=== PATIENT | male | born 1985 | race Caucasian/White ===

== ENCOUNTER 2024-10-09 19:01 | Emergency (ER) | payer OTHER, SELFPAY ==
[2024-10-09 19:01] VITALS: BMI 24.8
[2024-10-09 19:05] VITALS: BP 157/89
[2024-10-09 19:19] LABS: % Basophils 0.7 % (0-2); % Eosinophils 1.4 % (0-6); % Immature Granulocytes 0.1 % (0-0.5); % Lymphocytes 31.6 % (20.5-51.1); % Monocytes 8.2 % (1.7-9.3); Absolute Basophils 0.1 10^3/uL (0-0.2); Absolute Eosinophils 0.1 10^3/uL (0-0.7); Absolute Lymphocytes 2.2 10^3/uL (1.2-3.4); Absolute Monocytes 0.6 10^3/uL (0.1-0.6); Hematocrit 43.4 % (39.0-52.0); Hemoglobin 14.7 g/dL (13.0-18.0); Mean Corp Hgb Conc. 33.9 g/dL (33.0-37.0); Mean Corpuscular Hgb 27.9 pg (27.0-31.0); Mean Corpuscular Volume 82.5 fL (80.0-94.0); Mean Platelet Volume 10.1 fL (7.4-10.4); Nucleated Red Blood Cells % 0 % (-); Platelet Count 264 10^3/uL (130-400); Red Blood Cell Count 5.26 10^6/uL (4.70-6.10)
[2024-10-09 19:21] VITALS: BP 140/76
[2024-10-09 19:27] VITALS: BP 140/76
[2024-10-09 19:41] LABS: ALT (SGPT) 29 U/L (0-50); AST (SGOT) 25 U/L (17-59); Albumin 5.2 g/dl (3.5-5.0); Alkaline Phosphatase 85 U/L (38-126); Blood Urea Nitrogen 10 mg/dl (9-20); Calcium 10.2 mg/dl (8.4-10.2); Carbon Dioxide 27 mmol/L (22-30); Chloride 105 mmol/L (98-107); Estimated Creatinine Clearance 94 ml/min; Glucose 99 mg/dl (70-99); Potassium 3.7 mmol/L (3.5-5.1); Sodium 140 mmol/L (135-145); Total Bilirubin 0.8 mg/dl (0.2-1.3); Total Protein 7.4 g/dl (6.3-8.2); eGFR > 60.00
[2024-10-09 19:47] LABS: Troponin I < 0.012 ng/ml
[2024-10-09 20:00] VITALS: BP 133/81
--- NOTE | 2024-10-09 20:17 | ED.GENMED ---
History of Present Illness
General
Chief Complaint: Chest Pain
Source: patient
Exam Limitations: none
Time Seen by Provider: 10/09/24 20:09
Nursing documentation reviewed up to this point in time: agreed with
History of Present Illness
History of Present Illness:
39-year-old male with reported history of mild asthma, occasional GERD who presents to the ER for evaluation of chest pain. Patient reports symptoms have been ongoing for about 2 weeks. He reports a constant burning pain in his chest. He says
that the pain radiates up to his throat. No clear triggering or relieving factors noted�he reports that he went to urgent care and was advised to take a PPI and has been taking omeprazole twice daily for the past 2 weeks without improvement. While
he has had GERD in the past he says symptoms are never this severe or persistent. He says that symptoms seem to be generally worsening over the course of the past 2 weeks which prompted him to finally come to the ER for assessment. Aside from
chest pain he also reports mild occasional cough and some hoarseness of his voice. He denies any fever or chills. He denies feeling short of breath. He has not had any abdominal pain, no nausea/vomiting. Occasional loose stools. Denies any
swelling or pain in the legs. He denies any family history of early cardiac , no history of DVT/PE. He denies any alcohol use�says last alcohol intake was 6 months ago. He denies smoking or drug use.
Review of Systems
Review of Systems
All Other Systems: ROS reviewed and negative except as documented in HPI and ROS
Constitutional: Denies fever or chills
EENT: Reports other (Hoarseness of his voice)
Respiratory: Reports cough; Denies trouble breathing
Cardiac: Reports chest pain; Denies palpitations
ABD/GI: Reports diarrhea (Occasional); Denies abdominal pain, nausea or vomiting
: Denies flank pain
Musculoskeletal: Denies edema, neck pain or back pain
Neurological: Denies dizzy or headache
Phy Exam
Physical Exam
Physical Exam:
General: Awake, alert, oriented x3; no acute distress
Head: Normocephalic, atraumatic
Eyes: Conjunctiva normal, sclera anicteric
Throat: Airway intact, handling secretions
Neck: Trachea midline, supple without meningismus
Lungs: Clear to auscultation bilaterally, no wheezing, rales, rhonchi
Heart: Regular rate and rhythm, no murmurs, gallops, or rubs
Abd: Soft, non distended, nontender to deep palpation
Neuro: No gross deficits
Skin: no rash in area of concern
Extremities: No edema in extremities, no calf tenderness, equal pulses in all extremities
Scores
Heart Failure Risk
Heart Failure Risk Score: Not Applicable
Heart Score for Chest Pain Patients
STEMI patient?: No
History: Slightly or Non-Suspicious
ECG: Normal
Age: </= 45 years
Risk Factors: No Risk Factors
Troponin: </= Normal Limit
Heart Score for Chest Pain Patients: 0
Heart Score Risk: 2.5% MACE over next 6 weeks
Withdrawal Assessment of Alcohol
Withdrawal Assessment Completed?: Not applicable
Course
Orders/Labs/Results
Orders:
Orders
10/09/24 19:05
Electrocardiogram (*1) Urgent
Reason for Study: Chest Pain
Cardiac Monitoring- Treatment ONCE
EKG- Treatment ONCE
IV Insert/Care/Rem.- Treatment PRN
O2 Therapy [RESP] Urgent
Titrate/Wean O2 to maintain O2 sat greater than (%): 90
Special Instructions: Maintain sats >/=90%
Pulse Ox/spot Check [RESP] Urgent
Quantity: 1
Special Instructions: ON ROOM AIR
10/09/24 19:13
Complete Blood Count/With Diff Urgent
Comprehensive Metabolic Panel Urgent
Lipase Urgent
Comment: ADD ON
Troponin I Urgent
10/09/24 20:10
CR Chest - 2 Views Urgent
Comment:
Reason For Exam: chest pain
10/09/24 20:17
Mag Hydrox/Al Hydrox/Simeth [Maalox] 30 ml Phenobarb/Hyoscy/Atropine/Scop [] 10 ml Viscous Lidocaine 2% [Xylocaine Viscous Cup] 10 ml PO NOW
10/09/24 20:23
Add On- LAB Urgent
Tests Added?: lipase
10/09/24 20:29
Mag Hydrox/Al Hydrox/Simeth [Maalox] 30 ml .ROUTE .STK-MED ONE
Phenobarb/Hyoscy/Atropine/Scop [] 10 ml .ROUTE .STK-MED ONE
Viscous Lidocaine 2% [Xylocaine Viscous Cup] 15 ml .ROUTE .STK-MED ONE
10/09/24 20:37
D-Dimer Urgent
Abnormal Lab Results
10/09/24
19:13
Albumin 5.2 H g/dl
(3.5-5.0)
10/09/24 19:13
10/09/24 19:13
Vital Signs
Initial and Last Documented VS:
Initial Vital Signs
Temp Pulse Resp BP Pulse Ox
36.7 C 90 18 157/89 99
10/09/24 19:05 10/09/24 19:05 10/09/24 19:05 10/09/24 19:05 10/09/24 19:05
Last Documented Vital Signs
Temp Pulse Resp BP Pulse Ox
36.5 C 86 16 133/81 100
10/09/24 19:27 10/09/24 20:00 10/09/24 20:00 10/09/24 20:00 10/09/24 20:00
MDM/Problems Addressed
Differential Diagnosis Includes:
GERD/esophagitis, pneumothorax, pneumonia, costochondritis, pericarditis, pancreatitis, ACS considered much less likely, PE considered much less likely
MDM/Problems Addressed:
39-year-old male presents for evaluation of burning chest pain for the past 2 weeks not responding to PPI. Hypertensive in triage and normalized by my assessment, rest of vitals normal. Physical exam as above. He had an EKG in triage which shows
a sinus rhythm with nonspecific T wave abnormality. He had lab work sent in triage including a CBC and a CMP which showed no clinically significant abnormalities. He had a troponin sent which was undetectable�with constant symptoms for 2 weeks
this is sufficient to rule out acute KS and very low suspicion for ACS. Will check D-dimer, chest x-ray. Add lipase. Trial green grabber�suspect likely GERD/esophagitis. Will monitor closely reassess after the above.
D-dimer negative, chest x-ray reviewed by me shows no acute disease. Lipase normal. Clinical reassessment patient feeling a bit better after green grabber. Suspect likely GERD/esophagitis. Will add H2 wilmer to PPI as well as Carafate.
Follow-up with primary doctor as an outpatient. Patient comfortable with this plan. All questions answered.
Acute Exacerbation and/or Progression of Chronic Illness:
Acutely hypertensive resolved without intervention continue to monitor but no additional antihypertensives are indicated at this point in time
Acute Exacerbation and/or Progression of Chronic Illness: HTN
*Pulse Oximetry
Patient hypoxic: no (100%)
*EKG
Interpreted by ED Provider?: Yes
Heart Rate: 89
Rate: normal
Rhythm: sinus
Godwin: normal axis
Interval: normal interval
QRS Pattern: normal QRS
Ischemia: other (Nonspecific T wave abnormality)
*Critical Care Note
Total Time (30-74mins, 75-104mins- exclusive of procedures): Not Applicable
Data Reviewed
Source: patient and family (Mother)
ED Attending Note
-
Portions of this chart may have been created with voice recognition software.� Occasional wrong word or��sound alike� substitutions may have occurred due to the inherent limitations of voice recognition software.
Discharge Plan
Departure
Patient Disposition: Home (Routine Discharge)
Date of Disposition: 10/09/24
Time of Disposition: 21:02
Patient with high blood pressure during this ER visit?: Yes
Discharge Problem:
Chest pain
Instructions: Esophagitis, Chest Pain PCP Follow Up
Prescriptions:
New
famotidine 20 mg tablet
20 mg PO BID Qty: 30 0RF
sucralfate [Carafate] 100 mg/mL suspension
10 ml PO ACHS Qty: 1000 0RF
Referrals:
Jhon Ballesteros DO [Family Provider, [facility]] - Follow up in 5-7 days
Activity Restrictions/Additional Instructions:
Thank you for visiting the Emergency Department at [facility].
1. Please schedule a follow up appointment as directed. Call first thing tomorrow morning to make an appointment.
2. If indicated, please take your medications as instructed and indicated on discharge paperwork.
3. If any of your symptoms do not improve, or persist, or become more severe within 6-12 hours, please return to the emergency department for further care.
4. Please return to the emergency department if you develop a headache, neck pain/stiffness, fever greater than 100.4F, chest pain, shortness of breath, persistent nausea, vomiting, slurred speech, difficulty walking, numbness/tingling, weakness,
signs of infection or any other symptoms that are worrisome to you.
Please call [phone] if you have any questions.
Interventions
Interventions:
*Risk Screen - Suicide Last Done: 10/09/24 19:05
*Neglect/Abuse Screening Last Done: 10/09/24 19:05
ED- Cardiac Assessment Last Done: 10/09/24 19:28
Discharge Date and Time
Print Language: SLOVAK
[2024-10-09] MEDS: MAALOX 30 PO (20:38)
[2024-10-09 20:56] LABS: Lipase 115 U/L (23-300)
[2024-10-09 20:58] LABS: D-Dimer < 0.27 ug/mlFEU (0.00-0.50)
[2024-10-09 21:00] VITALS: BP 111/76
== END 2024-10-09 21:18 | disposition home or self-care (01) ==
LOC: EMR 19:01
PROVIDERS: Emergency Medicine; EMERGENCY PHYSICIAN Emergency Medicine; FAMILY PHYSICIAN Family Medicine
DX: R07.9 Chest pain, unspecified (principal); I10 Essential (primary) hypertension; J45.909 Unspecified asthma, uncomplicated; K21.9 Gastro-esophageal reflux disease without esophagitis; Z79.899 Other long term (current) drug therapy
CPT/HCPCS: 99285; 71046; 80053; 83690; 84484; 85025; 85379; 93005

== ENCOUNTER 2025-03-16 06:25 | Day surgery (SDC) | payer OTHER, SELFPAY | END 2025-03-16 13:54 | disposition home or self-care (01) | LOC: GI 06:25 | PROVIDERS: ATTENDING PHYSICIAN Internal Medicine Gastroenterology; FAMILY PHYSICIAN Family Medicine | DX: K21.00 Gastro-esophageal reflux disease with esophagitis, without bleeding (principal); R07.89 Other chest pain; K22.2 Esophageal obstruction; K44.9 Diaphragmatic hernia without obstruction or gangrene; K22.89 Other specified disease of esophagus; K29.70 Gastritis, unspecified, without bleeding; K29.50 Unspecified chronic gastritis without bleeding | CPT/HCPCS: 43239; 88305; 88342 ==